=== PATIENT | male | born 1985 | race Caucasian/White ===

== ENCOUNTER 2019-05-20 14:29 | Emergency (ER) | payer MEDICAID ==
[~2019-05-20] VITALS: Ht 172.7 cm; Wt 75.0 kg
[~2019-05-20 14:29] MED LIST: CLON0.1T20 PO; PANT-47 PO; PENI500T2 PO; TEG100T PO
[2019-05-20 15:03] VITALS: BP 130/84
[2019-05-20] MEDS ORDERED: PAT0.1OS OP (15:23)
== END 2019-05-20 15:54 | disposition home or self-care (01) ==
LOC: ER 14:29
DX: H02.824 Cysts of left upper eyelid (principal); H10.13 Acute atopic conjunctivitis, bilateral; R05 Cough; J02.9 Acute pharyngitis, unspecified; R09.89 Other specified symptoms and signs involving the circulatory and respiratory systems; J45.909 Unspecified asthma, uncomplicated; F31.9 Bipolar disorder, unspecified; Z86.14 Personal history of Methicillin resistant Staphylococcus aureus infection; Z90.49 Acquired absence of other specified parts of digestive tract; Z98.890 Other specified postprocedural states
CPT/HCPCS: 99283

== ENCOUNTER 2020-02-26 11:44 | Emergency (ER) | payer MEDICAID ==
[~2020-02-26] VITALS: Ht 175.3 cm; Wt 77.0 kg
[~2020-02-26 11:44] MED LIST changes: +CLON0.1T2 PO; -CLON0.1T20 PO; +PAT0.1OS OP
[2020-02-26 11:55] VITALS: BP 109/76
[2020-02-26] MEDS ORDERED: ibuprofen tablet 400 MG TABLET PO ONE (12:20)
[2020-02-26] MEDS ORDERED: HYDR-4383 PO (12:22)
[2020-02-26] MEDS ORDERED: ONDA4TAB6 PO (12:22)
== END 2020-02-26 12:38 | disposition home or self-care (01) ==
LOC: ER 11:44
DX: S92.415A Nondisplaced fracture of proximal phalanx of left great toe, initial encounter for closed fracture (principal); J45.909 Unspecified asthma, uncomplicated; F31.9 Bipolar disorder, unspecified; Z86.14 Personal history of Methicillin resistant Staphylococcus aureus infection; Z90.49 Acquired absence of other specified parts of digestive tract; Z79.899 Other long term (current) drug therapy; W01.0XXA Fall on same level from slipping, tripping and stumbling without subsequent striking against object, initial encounter; Y93.89 Activity, other specified; Y92.89 Other specified places as the place of occurrence of the external cause; Y99.8 Other external cause status
CPT/HCPCS: 73660; 99284

== ENCOUNTER 2020-06-18 22:13 | Emergency (ER) | payer MEDICAID ==
[~2020-06-18 22:13] MED LIST changes: +HYDR-4383 PO; +ONDA4TAB6 PO
== END 2020-06-18 23:19 | disposition left against medical advice (07) ==
LOC: ER 22:13
DX: M25.519 Pain in unspecified shoulder (principal); Z53.21 Procedure and treatment not carried out due to patient leaving prior to being seen by health care provider

== ENCOUNTER 2020-12-06 14:06 | Emergency (ER) | payer MEDICAID ==
[~2020-12-06] VITALS: Ht 175.3 cm; Wt 76.4 kg
[2020-12-06 16:19] LABS: MEAN CORPUSCULAR HEMOGLOBIN 28.9 PG (27.0-31.0); MEAN CORPUSCULAR HGB CONC 33.2 g/dL (33.0-36.5); MEAN CORPUSCULAR VOLUME 87.1 FL (78-98)
[2020-12-06 16:21] LABS: BASOPHILS # (AUTO) 0.1 X10'3 (0-0.2); BASOPHILS % (AUTO) 0.9 % (0-1); EOSINOPHILS # (AUTO) 0.4 X10'3 (0-0.9); EOSINOPHILS % (AUTO) 3.5 % (0-6); HEMOGLOBIN 15.9 g/dl (14.0-17.9); LYMPHOCYTES # (AUTO) 2.6 X10'3 (1.1-4.8); LYMPHOCYTES % (AUTO) 23.7 % (21-51); MEAN PLATELET VOLUME 9.5 FL (7.4-10.4); MONOCYTES % (AUTO) 8.8 % (2-12); NEUTROPHILS # (AUTO) 6.9 X10'3 (1.8-7.7); NEUTROPHILS % (AUTO) 63.1 % (42-75); PLATELET COUNT 226 X10'3 (140-440); RED BLOOD COUNT 5.51 X10'6 (4.70-6.10); RED CELL DISTRIBUTION WIDTH 13.8 % (11.5-14.5); WHITE BLOOD COUNT 10.9 X10'3 (4.5-11.0)
[2020-12-06 16:30] LABS: ALANINE AMINOTRANSFERASE 26 U/L (12-78); ALBUMIN 3.8 G/DL (3.4-5.0); ALBUMIN/GLOBULIN RATIO 1.2 (1.1-1.5); ALKALINE PHOSPHATASE 78 IU/L (46-116); ANION GAP 9 (8-16); ASPARTATE AMINO TRANSFERASE 16 U/L (10-37); BILIRUBIN,TOTAL 0.3 MG/DL (0.1-1.0); BLOOD UREA NITROGEN 13 MG/DL (7-18); CALCIUM 8.2 MG/DL (8.5-10.1); CHLORIDE 106 MMOL/L (99-107); CREATININE 1.08 MG/DL (0.60-1.10); GLUCOSE 84 MG/DL (70-104); LIPASE 118 U/L (73-393); POTASSIUM 4.3 MMOL/L (3.5-5.1); SODIUM 142 MMOL/L (135-145); TOTAL CARBON DIOXIDE 27.2 MMOL/L (24-32); TOTAL PROTEIN 6.9 G/DL (6.4-8.2); eGFR 78 ML/MIN
[2020-12-06 16:32] LABS: CLARITY,URINE SLIGHTLY CLOUDY (Clear); COLOR,URINE YELLOW (Yellow); GLUCOSE, URINE NEGATIVE (Neg); KETONES,URINE TRACE mg/dl (Neg); LEUKOCYTE ESTERASE ,URINE NEGATIVE (Neg); NITRITES, URINE NEGATIVE (Neg); OCCULT BLOOD,URINE SMALL (Neg); PH,URINE 5.5 (4.8-8.0); PROTEIN,URINE NEGATIVE (Neg)
[2020-12-06 16:37] LABS: UA COLLECTION TYPE CLN CATCH MIDSTREAM
[2020-12-06 16:41] LABS: MUCUS STRANDS MANY /LPF (Neg); SQUAMOUS EPITHELIAL CELL,UR NONE SEEN /LPF (FEW)
[2020-12-06 16:44] LABS: BACTERIA,URINE FEW /HPF (Neg); WBC,URINE 0-4 /HPF (0-4)
[2020-12-06] MEDS ORDERED: ibuprofen tablet 400 MG TABLET PO ONE (19:00)
--- NOTE | 2020-12-06 19:11 | NUR ---
KALYANI KINNEY REPORTS OK FOR PT TO HAVE SOEMTHING TO EAT AND DRINK. US TECH AT BEDSIDE FOR BEDSIDE US.
[2020-12-06] MEDS ORDERED: HYDR-3965 PO (19:57)
[2020-12-06] MEDS ORDERED: FLO0.4C PO (19:58)
--- NOTE | 2020-12-06 20:03 | NUR ---
PT DC READY. KALYANI KINNEY TALKING WITH PT AT THIS TIME AND PROVIDING DC INSTRUCTIONS.
[2020-12-06] MEDS ORDERED: ALBU8.5H8 INH (20:09)
[2020-12-06 20:16] VITALS: BP 106/69
== END 2020-12-06 20:18 | disposition home or self-care (01) ==
LOC: ER 14:07
DX: N20.0 Calculus of kidney (principal); R10.84 Generalized abdominal pain; R11.0 Nausea; J45.909 Unspecified asthma, uncomplicated; F31.9 Bipolar disorder, unspecified; Z87.11 Personal history of peptic ulcer disease; Z86.14 Personal history of Methicillin resistant Staphylococcus aureus infection; Z90.89 Acquired absence of other organs; Z79.899 Other long term (current) drug therapy; Z79.2 Long term (current) use of antibiotics
CPT/HCPCS: 36415; 76775; 80053; 81001; 83690; 85025; 99284

== ENCOUNTER 2020-12-14 06:35 | Emergency (ER) | payer MEDICAID ==
[~2020-12-14] VITALS: Ht 172.7 cm; Wt 77.3 kg
[~2020-12-14 06:35] MED LIST changes: +ALBU8.5H8 INH; +FLO0.4C PO; +HYDR-3965 PO
--- NOTE | 2020-12-14 06:59 | NUR ---
PT REQUESTED THAT HIS MOTHER BE CALLED AND NOTIFIED THAT HE WAS IN THE ER. CÉSAR TRAYLOR WAS CALLED AT [phone], NO ANSWER, MESSAGE LEFT TO CALL.
[2020-12-14] MEDS ORDERED: ondansetron/PF 4mg/2ml inj IV ONE (07:00)
[2020-12-14] MEDS ORDERED: normal saline 1000ML IV soln IVB ONE (07:00)
[2020-12-14] MEDS ORDERED: ketorolac trometh. 30mg/ml inj. IV ONE (07:00)
[2020-12-14 07:10] LABS: BASOPHILS # (AUTO) 0.1 X10'3 (0-0.2); BASOPHILS % (AUTO) 0.8 % (0-1); EOSINOPHILS # (AUTO) 0.5 X10'3 (0-0.9); EOSINOPHILS % (AUTO) 4.4 % (0-6); HEMATOCRIT 49.1 % (42.0-52.0); HEMOGLOBIN 16.5 g/dl (14.0-17.9); LYMPHOCYTES # (AUTO) 3.5 X10'3 (1.1-4.8); LYMPHOCYTES % (AUTO) 32.4 % (21-51); MEAN CORPUSCULAR HEMOGLOBIN 29.7 PG (27.0-31.0); MEAN CORPUSCULAR HGB CONC 33.6 g/dL (33.0-36.5); MEAN CORPUSCULAR VOLUME 88.4 FL (78-98); MEAN PLATELET VOLUME 9.2 FL (7.4-10.4); MONOCYTES % (AUTO) 9.6 % (2-12); NEUTROPHILS # (AUTO) 5.7 X10'3 (1.8-7.7); NEUTROPHILS % (AUTO) 52.8 % (42-75); PLATELET COUNT 237 X10'3 (140-440); RED BLOOD COUNT 5.55 X10'6 (4.70-6.10); WHITE BLOOD COUNT 10.7 X10'3 (4.5-11.0)
[2020-12-14] MEDS: morphine 4 MG/ML inj SYRINge IV PRN ×2 (07:14→07:38)
[2020-12-14 07:25] LABS: ALANINE AMINOTRANSFERASE 24 U/L (12-78); ALBUMIN 3.8 G/DL (3.4-5.0); ALBUMIN/GLOBULIN RATIO 1.2 (1.1-1.5); ALKALINE PHOSPHATASE 74 IU/L (46-116); ANION GAP 14 (8-16); ASPARTATE AMINO TRANSFERASE 12 U/L (10-37); BILIRUBIN,TOTAL 0.5 MG/DL (0.1-1.0); BLOOD UREA NITROGEN 12 MG/DL (7-18); BUN/CREATININE RATIO 11.7 (5.4-32.0); CALCIUM 8.6 MG/DL (8.5-10.1); CHLORIDE 109 MMOL/L (99-107); CREATININE 1.03 MG/DL (0.60-1.10); GLUCOSE 119 MG/DL (70-104); LIPASE 106 U/L (73-393); POTASSIUM 3.6 MMOL/L (3.5-5.1); SODIUM 145 MMOL/L (135-145); TOTAL CARBON DIOXIDE 21.8 MMOL/L (24-32); TOTAL PROTEIN 6.9 G/DL (6.4-8.2); eGFR 82 ML/MIN
[2020-12-14] MEDS ORDERED: proCHLORperazine 10 MG/2 ml inj IV ONE (08:05)
--- NOTE | 2020-12-14 09:20 | NUR ---
CT COMPLETED, PT BACK IN BED, STATES PAIN IS 5/10
[2020-12-14] MEDS ORDERED: HYDROcodone/acetaminophen 10/325mg tab PO ONE ×2 (09:30→10:35)
[2020-12-14] MEDS ORDERED: HYDR-3972 PO (09:41)
--- NOTE | 2020-12-14 09:42 | NUR ---
PT SLEEPING, NO S/S OF DISTRESS
[2020-12-14 10:45] VITALS: BP 105/79
== END 2020-12-14 10:49 | disposition home or self-care (01) ==
LOC: ER 06:36
DX: N20.2 Calculus of kidney with calculus of ureter (principal); N28.89 Other specified disorders of kidney and ureter; J45.909 Unspecified asthma, uncomplicated; F31.9 Bipolar disorder, unspecified; Z86.14 Personal history of Methicillin resistant Staphylococcus aureus infection; Z90.49 Acquired absence of other specified parts of digestive tract; Z79.899 Other long term (current) drug therapy
CPT/HCPCS: 36415; 74176; 80053; 83690; 85025; 96361; 96374; 96375; 99284; J0780; J1885; J2270; J2405; J7030

== ENCOUNTER 2020-12-16 05:18 | Emergency (ER) | payer MEDICAID ==
[~2020-12-16] VITALS: Ht 175.3 cm; Wt 77.0 kg
[~2020-12-16 05:18] MED LIST changes: -HYDR-3965 PO; +HYDR-3972 PO
[2020-12-16] MEDS ORDERED: normal saline 1000ML IV soln IVB ONE (05:55)
[2020-12-16] MEDS ORDERED: ketorolac tromethamine 15mg/ml inj. IV ONE (05:55)
[2020-12-16] MEDS ORDERED: morphine 4 MG/ML inj SYRINge IV ONE (05:55)
[2020-12-16 07:37] LABS: BASOPHILS # (AUTO) 0.1 X10'3 (0-0.2); BASOPHILS % (AUTO) 0.9 % (0-1); EOSINOPHILS # (AUTO) 0.4 X10'3 (0-0.9); EOSINOPHILS % (AUTO) 3.9 % (0-6); HEMATOCRIT 44.9 % (42.0-52.0); LYMPHOCYTES # (AUTO) 1.9 X10'3 (1.1-4.8); LYMPHOCYTES % (AUTO) 20.9 % (21-51); MEAN CORPUSCULAR HGB CONC 33.4 g/dL (33.0-36.5); MEAN PLATELET VOLUME 9.4 FL (7.4-10.4); MONOCYTES # (AUTO) 0.9 X10'3 (0-0.9); MONOCYTES % (AUTO) 9.7 % (2-12); NEUTROPHILS % (AUTO) 64.6 % (42-75); PLATELET COUNT 196 X10'3 (140-440); RED BLOOD COUNT 5.16 X10'6 (4.70-6.10); RED CELL DISTRIBUTION WIDTH 13.9 % (11.5-14.5); WHITE BLOOD COUNT 9.3 X10'3 (4.5-11.0)
[2020-12-16 07:48] VITALS: BP 120/78
[2020-12-16 07:52] LABS: ALANINE AMINOTRANSFERASE 22 U/L (12-78); ALBUMIN 3.5 G/DL (3.4-5.0); ALBUMIN/GLOBULIN RATIO 1.2 (1.1-1.5); ALKALINE PHOSPHATASE 67 IU/L (46-116); ANION GAP 8 (8-16); ASPARTATE AMINO TRANSFERASE 14 U/L (10-37); BILIRUBIN,TOTAL 0.3 MG/DL (0.1-1.0); BLOOD UREA NITROGEN 10 MG/DL (7-18); BUN/CREATININE RATIO 10.2 (5.4-32.0); CALCIUM 8.4 MG/DL (8.5-10.1); CHLORIDE 108 MMOL/L (99-107); CREATININE 0.98 MG/DL (0.60-1.10); GLUCOSE 91 MG/DL (70-104); POTASSIUM 3.8 MMOL/L (3.5-5.1); SODIUM 143 MMOL/L (135-145); TOTAL CARBON DIOXIDE 26.6 MMOL/L (24-32); TOTAL PROTEIN 6.4 G/DL (6.4-8.2); eGFR 87 ML/MIN
[2020-12-16 08:34] LABS: CLARITY,URINE CLEAR (Clear); COLOR,URINE YELLOW (Yellow); GLUCOSE, URINE NEGATIVE (Neg); KETONES,URINE NEGATIVE (Neg); LEUKOCYTE ESTERASE ,URINE NEGATIVE (Neg); NITRITES, URINE NEGATIVE (Neg); OCCULT BLOOD,URINE SMALL (Neg); PH,URINE 5.5 (4.8-8.0); PROTEIN,URINE NEGATIVE (Neg); UROBILINOGEN,URINE 0.2 E.U/dL (0.2-1.0)
[2020-12-16 08:35] LABS: UA COLLECTION TYPE NON-SPECIFIED
[2020-12-16 08:43] LABS: HYALINE CASTS 0-3 /LPF (NEGATIVE); MUCUS STRANDS FEW /LPF (Neg); SQUAMOUS EPITHELIAL CELL,UR FEW /LPF (FEW)
[2020-12-16 08:44] LABS: BACTERIA,URINE 1+ /HPF (Neg); WBC,URINE 0-4 /HPF (0-4)
== END 2020-12-16 09:55 | disposition home or self-care (01) ==
LOC: ER 05:19
DX: N20.1 Calculus of ureter (principal); N20.0 Calculus of kidney; J45.909 Unspecified asthma, uncomplicated; F31.9 Bipolar disorder, unspecified; Z86.14 Personal history of Methicillin resistant Staphylococcus aureus infection; Z90.49 Acquired absence of other specified parts of digestive tract; Z88.8 Allergy status to other drugs, medicaments and biological substances; Z79.899 Other long term (current) drug therapy
CPT/HCPCS: 36415; 80053; 81001; 85025; 96361; 96374; 99283; J1885; J7030

== ENCOUNTER 2021-02-06 12:34 | Emergency (ER) | payer MEDICAID ==
[~2021-02-06] VITALS: Ht 175.3 cm; Wt 75.4 kg
[~2021-02-06 12:34] MED LIST changes: -FLO0.4C PO; -HYDR-3972 PO
[2021-02-06 12:43] VITALS: BP 119/83
[2021-02-06 13:14] LABS: CLARITY,URINE CLOUDY (Clear); COLOR,URINE YELLOW (Yellow); GLUCOSE, URINE NEGATIVE (Neg); KETONES,URINE TRACE mg/dl (Neg); LEUKOCYTE ESTERASE ,URINE NEGATIVE (Neg); NITRITES, URINE NEGATIVE (Neg); OCCULT BLOOD,URINE LARGE (Neg); PH,URINE 5.5 (4.8-8.0); PROTEIN,URINE 30 mg/dl (Neg)
[2021-02-06 13:15] LABS: UA COLLECTION TYPE VOIDED
[2021-02-06 13:22] LABS: MUCUS STRANDS FEW /LPF (Neg); RBC,URINE TNTC /HPF (0-2); SQUAMOUS EPITHELIAL CELL,UR FEW /LPF (FEW)
[2021-02-06 13:27] LABS: BACTERIA,URINE 1+ /HPF (Neg)
[2021-02-06 13:42] LABS: BASOPHILS # (AUTO) 0.1 X10'3 (0-0.2); BASOPHILS % (AUTO) 1.3 % (0-1); EOSINOPHILS # (AUTO) 0.3 X10'3 (0-0.9); EOSINOPHILS % (AUTO) 3.7 % (0-6); HEMATOCRIT 48.8 % (42.0-52.0); HEMOGLOBIN 16.7 g/dl (14.0-17.9); LYMPHOCYTES # (AUTO) 2.1 X10'3 (1.1-4.8); LYMPHOCYTES % (AUTO) 25.1 % (21-51); MEAN CORPUSCULAR HEMOGLOBIN 29.5 PG (27.0-31.0); MEAN CORPUSCULAR HGB CONC 34.1 g/dL (33.0-36.5); MEAN CORPUSCULAR VOLUME 86.4 FL (78-98); MEAN PLATELET VOLUME 9.2 FL (7.4-10.4); MONOCYTES # (AUTO) 0.6 X10'3 (0-0.9); MONOCYTES % (AUTO) 7.5 % (2-12); NEUTROPHILS # (AUTO) 5.3 X10'3 (1.8-7.7); NEUTROPHILS % (AUTO) 62.4 % (42-75); PLATELET COUNT 228 X10'3 (140-440); RED BLOOD COUNT 5.65 X10'6 (4.70-6.10); RED CELL DISTRIBUTION WIDTH 13.7 % (11.5-14.5); WHITE BLOOD COUNT 8.4 X10'3 (4.5-11.0)
[2021-02-06 13:45] LABS: ALANINE AMINOTRANSFERASE 24 U/L (12-78); ALBUMIN 3.9 G/DL (3.4-5.0); ALBUMIN/GLOBULIN RATIO 1.1 (1.1-1.5); ALKALINE PHOSPHATASE 78 IU/L (46-116); ANION GAP 7 (8-16); ASPARTATE AMINO TRANSFERASE 15 U/L (10-37); BILIRUBIN,TOTAL 0.4 MG/DL (0.1-1.0); BLOOD UREA NITROGEN 10 MG/DL (7-18); BUN/CREATININE RATIO 9.3 (5.4-32.0); CALCIUM 8.7 MG/DL (8.5-10.1); CHLORIDE 106 MMOL/L (99-107); CREATININE 1.08 MG/DL (0.60-1.10); GLUCOSE 101 MG/DL (70-104); POTASSIUM 3.8 MMOL/L (3.5-5.1); SODIUM 141 MMOL/L (135-145); TOTAL CARBON DIOXIDE 28.5 MMOL/L (24-32); TOTAL PROTEIN 7.3 G/DL (6.4-8.2); eGFR 78 ML/MIN
== END 2021-02-06 14:20 | disposition home or self-care (01) ==
LOC: ER 12:35
DX: R31.9 Hematuria, unspecified (principal); J45.909 Unspecified asthma, uncomplicated; F31.9 Bipolar disorder, unspecified; Z87.11 Personal history of peptic ulcer disease; Z87.442 Personal history of urinary calculi; Z86.14 Personal history of Methicillin resistant Staphylococcus aureus infection; Z90.89 Acquired absence of other organs; Z79.2 Long term (current) use of antibiotics; Z79.899 Other long term (current) drug therapy
CPT/HCPCS: 36415; 80053; 81001; 85025; 87088; 99283

== ENCOUNTER 2021-02-19 09:47 | Emergency (ER) | payer MEDICAID ==
[~2021-02-19] VITALS: Ht 175.3 cm; Wt 74.0 kg
[2021-02-19 09:55] VITALS: BP 127/79
[2021-02-19 10:42] LABS: CLARITY,URINE SLIGHTLY CLOUDY (Clear); COLOR,URINE AMBER (Yellow); GLUCOSE, URINE 100 mg/dl (Neg); KETONES,URINE TRACE mg/dl (Neg); LEUKOCYTE ESTERASE ,URINE NEGATIVE (Neg); OCCULT BLOOD,URINE LARGE (Neg); PROTEIN,URINE 100 mg/dl (Neg)
[2021-02-19 10:45] LABS: UA COLLECTION TYPE CLN CATCH MIDSTREAM
[2021-02-19 10:49] LABS: BACTERIA,URINE FEW /HPF (Neg); NITRITES, URINE NEGATIVE (Neg); RBC,URINE 50-100 /HPF (0-2); WBC,URINE 0-4 /HPF (0-4)
[2021-02-19 10:50] LABS: MUCUS STRANDS FEW /LPF (Neg); SQUAMOUS EPITHELIAL CELL,UR FEW /LPF (FEW)
== END 2021-02-19 13:03 | disposition left against medical advice (07) ==
LOC: ER 09:48
DX: C64.2 Malignant neoplasm of left kidney, except renal pelvis (principal); R31.9 Hematuria, unspecified; J45.909 Unspecified asthma, uncomplicated; F31.9 Bipolar disorder, unspecified; Z87.442 Personal history of urinary calculi; Z90.49 Acquired absence of other specified parts of digestive tract; Z86.14 Personal history of Methicillin resistant Staphylococcus aureus infection; Z79.899 Other long term (current) drug therapy
CPT/HCPCS: 81001; 99283

== ENCOUNTER 2022-09-16 17:02 | Emergency (ER) | payer MEDICAID ==
[~2022-09-16] VITALS: Ht 175.3 cm; Wt 75.0 kg
[~2022-09-16 17:02] MED LIST changes: +ALBU8.5H17 INH; -ALBU8.5H8 INH
[2022-09-16 17:22] VITALS: BP 135/95
[2022-09-16 18:14] LABS: BASOPHILS # (AUTO) 0.1 X10'3 (0-0.2); BASOPHILS % (AUTO) 0.8 % (0-1); EOSINOPHILS # (AUTO) 0.3 X10'3 (0-0.9); EOSINOPHILS % (AUTO) 2.3 % (0-6); HEMATOCRIT 48.3 % (42.0-52.0); HEMOGLOBIN 16.5 g/dl (14.0-17.9); LYMPHOCYTES # (AUTO) 2.2 X10'3 (1.1-4.8); LYMPHOCYTES % (AUTO) 16.1 % (21-51); MEAN CORPUSCULAR HEMOGLOBIN 29.1 PG (27.0-31.0); MEAN CORPUSCULAR HGB CONC 34.2 g/dL (33.0-36.5); MEAN PLATELET VOLUME 8.4 FL (7.4-10.4); MONOCYTES # (AUTO) 0.9 X10'3 (0-0.9); MONOCYTES % (AUTO) 6.8 % (2-12); NEUTROPHILS # (AUTO) 9.9 X10'3 (1.8-7.7); PLATELET COUNT 248 X10'3 (140-440); RED BLOOD COUNT 5.68 X10'6 (4.70-6.10); RED CELL DISTRIBUTION WIDTH 13.9 % (11.5-14.5); WHITE BLOOD COUNT 13.4 X10'3 (4.5-11.0)
[2022-09-16 18:23] LABS: ALANINE AMINOTRANSFERASE 31 U/L (12-78); ALBUMIN 4.2 G/DL (3.4-5.0); ALBUMIN/GLOBULIN RATIO 1.2 (1.1-1.5); ALKALINE PHOSPHATASE 92 IU/L (46-116); ANION GAP 8 (8-16); ASPARTATE AMINO TRANSFERASE 18 U/L (10-37); BILIRUBIN,TOTAL 0.4 MG/DL (0.1-1.0); BLOOD UREA NITROGEN 11 MG/DL (7-18); BUN/CREATININE RATIO 10.7 (5.4-32.0); CALCIUM 9.2 MG/DL (8.5-10.1); CHLORIDE 103 MMOL/L (99-107); CREATININE 1.03 MG/DL (0.60-1.10); GLUCOSE 91 MG/DL (70-104); LIPASE 102 U/L (73-393); POTASSIUM 4.5 MMOL/L (3.5-5.1); SODIUM 138 MMOL/L (135-145); TOTAL CARBON DIOXIDE 27.5 MMOL/L (24-32); TOTAL PROTEIN 7.6 G/DL (6.4-8.2); eGFR 81 ML/MIN
== END 2022-09-16 21:50 | disposition left against medical advice (07) ==
LOC: ER 17:03
DX: R10.9 Unspecified abdominal pain (principal); Z53.21 Procedure and treatment not carried out due to patient leaving prior to being seen by health care provider
CPT/HCPCS: 36415; 80053; 83690; 85025

== ENCOUNTER 2022-12-01 00:37 | Emergency (ER) | payer MEDICAID ==
[~2022-12-01] VITALS: Ht 175.3 cm; Wt 77.3 kg
[2022-12-01 00:41] VITALS: BP 124/83
[2022-12-01] MEDS ORDERED: ibuprofen tablet 400 MG TABLET PO ONE (01:30)
[2022-12-01] MEDS ORDERED: acetaminophen 325mg tablet PO ONE (01:30)
== END 2022-12-01 02:01 | disposition home or self-care (01) ==
LOC: ER 00:38
DX: J02.9 Acute pharyngitis, unspecified (principal); J45.909 Unspecified asthma, uncomplicated; F31.9 Bipolar disorder, unspecified; Z88.8 Allergy status to other drugs, medicaments and biological substances
CPT/HCPCS: 87081; 87880; 99283

== ENCOUNTER 2022-12-02 23:56 | Emergency (ER) | payer MEDICAID ==
[~2022-12-02] VITALS: Ht 175.3 cm; Wt 77.3 kg
[2022-12-02 23:59] VITALS: BP 116/85
== END 2022-12-03 00:51 | disposition home or self-care (01) ==
LOC: ER 23:57
DX: J02.9 Acute pharyngitis, unspecified (principal); F31.9 Bipolar disorder, unspecified; J45.909 Unspecified asthma, uncomplicated; Z87.442 Personal history of urinary calculi; Z90.49 Acquired absence of other specified parts of digestive tract; Z88.8 Allergy status to other drugs, medicaments and biological substances; Z79.899 Other long term (current) drug therapy; Z79.1 Long term (current) use of non-steroidal anti-inflammatories (NSAID); Z79.2 Long term (current) use of antibiotics
CPT/HCPCS: 87081; 99283

== ENCOUNTER 2023-01-31 14:55 | Emergency (ER) | payer MEDICAID ==
[~2023-01-31] VITALS: Ht 175.3 cm; Wt 75.0 kg
[2023-01-31 15:40] VITALS: BP_SYST 102
== END 2023-01-31 17:40 | disposition home or self-care (01) ==
LOC: ER 14:56
DX: K40.90 Unilateral inguinal hernia, without obstruction or gangrene, not specified as recurrent (principal); J45.909 Unspecified asthma, uncomplicated; F31.9 Bipolar disorder, unspecified; Z88.8 Allergy status to other drugs, medicaments and biological substances; Z98.890 Other specified postprocedural states
CPT/HCPCS: 99281

== ENCOUNTER 2024-05-01 12:00 | Emergency (ER) | payer MEDICAID ==
[~2024-05-01] VITALS: Ht 172.7 cm; Wt 84.1 kg
[2024-05-01 12:01] VITALS: TEMP 97.8
[2024-05-01 12:50] LABS: BASOPHILS % (AUTO) 0.5 % (0-1); EOSINOPHILS # (AUTO) 0.2 X10'3 (0-0.9); EOSINOPHILS % (AUTO) 2.3 % (0-6); HEMATOCRIT 46.1 % (42.0-52.0); HEMOGLOBIN 15.6 g/dl (14.0-17.9); LYMPHOCYTES # (AUTO) 0.7 X10'3 (1.1-4.8); LYMPHOCYTES % (AUTO) 7.8 % (21-51); MEAN CORPUSCULAR HEMOGLOBIN 29.3 PG (27.0-31.0); MEAN CORPUSCULAR HGB CONC 33.8 g/dL (33.0-36.5); MEAN CORPUSCULAR VOLUME 86.8 FL (78-98); MEAN PLATELET VOLUME 9.2 FL (7.4-10.4); MONOCYTES # (AUTO) 0.7 X10'3 (0-0.9); MONOCYTES % (AUTO) 8.5 % (2-12); NEUTROPHILS # (AUTO) 6.8 X10'3 (1.8-7.7); NEUTROPHILS % (AUTO) 80.9 % (42-75); PLATELET COUNT 205 X10'3 (140-440); RED BLOOD COUNT 5.31 X10'6 (4.70-6.10); RED CELL DISTRIBUTION WIDTH 13.8 % (11.5-14.5); WHITE BLOOD COUNT 8.4 X10'3 (4.5-11.0)
[2024-05-01 13:09] LABS: ALBUMIN 3.8 G/DL (3.4-5.0); ANION GAP 12 (8-16); BLOOD UREA NITROGEN 11 MG/DL (7-18); BUN/CREATININE RATIO 9.2 (10.0-20.0); CALCIUM 7.8 MG/DL (8.5-10.1); CHLORIDE 105 MMOL/L (99-107); GLUCOSE 105 MG/DL (70-104); POTASSIUM 3.6 MMOL/L (3.5-5.1); PRO BRAIN NATRIURETIC PEPTIDE < 30 PG/ML (0-125); SODIUM 143 MMOL/L (135-145); TOTAL CARBON DIOXIDE 26.4 MMOL/L (24-32); eCRCL 81 ML/MIN; eGFR 68 ML/MIN
[2024-05-01 13:36] VITALS: BP 117/87; PULSE 108; RESP 18; O2SAT 98
== END 2024-05-01 13:40 | disposition home or self-care (01) ==
LOC: ER 12:01
DX: R00.2 Palpitations (principal); F41.9 Anxiety disorder, unspecified; I49.9 Cardiac arrhythmia, unspecified; J45.909 Unspecified asthma, uncomplicated; F32.A Depression, unspecified; Z88.8 Allergy status to other drugs, medicaments and biological substances; Z79.899 Other long term (current) drug therapy; Z79.2 Long term (current) use of antibiotics; Z98.890 Other specified postprocedural states
CPT/HCPCS: 36415; 71045; 80048; 83880; 84484; 85025; 93005; 99285

== ENCOUNTER 2024-05-05 13:19 | Emergency (ER) | payer MEDICAID ==
[~2024-05-05] VITALS: Ht 172.7 cm; Wt 83.6 kg
[2024-05-05] MEDS: dexamethasone sod phosphate 10mg/ml inj IV STA (13:54)
[2024-05-05 14:16] LABS: BASOPHILS # (AUTO) 0.1 X10'3 (0-0.2); BASOPHILS % (AUTO) 0.8 % (0-1); EOSINOPHILS # (AUTO) 0.4 X10'3 (0-0.9); EOSINOPHILS % (AUTO) 4.4 % (0-6); HEMATOCRIT 46.1 % (42.0-52.0); HEMOGLOBIN 15.6 g/dl (14.0-17.9); LYMPHOCYTES # (AUTO) 1.8 X10'3 (1.1-4.8); LYMPHOCYTES % (AUTO) 18.1 % (21-51); MEAN CORPUSCULAR HEMOGLOBIN 28.5 PG (27.0-31.0); MEAN CORPUSCULAR HGB CONC 33.8 g/dL (33.0-36.5); MEAN CORPUSCULAR VOLUME 84.4 FL (78-98); MONOCYTES # (AUTO) 0.9 X10'3 (0-0.9); MONOCYTES % (AUTO) 8.6 % (2-12); NEUTROPHILS # (AUTO) 6.8 X10'3 (1.8-7.7); NEUTROPHILS % (AUTO) 68.1 % (42-75); PLATELET COUNT 210 X10'3 (140-440); RED BLOOD COUNT 5.46 X10'6 (4.70-6.10); RED CELL DISTRIBUTION WIDTH 13.5 % (11.5-14.5)
[2024-05-05 14:25] LABS: D-DIMER 0.23 MG/L FEU (0-0.50)
[2024-05-05 14:45] LABS: ALANINE AMINOTRANSFERASE 28 U/L (12-78); ALBUMIN 3.6 G/DL (3.4-5.0); ALKALINE PHOSPHATASE 66 IU/L (46-116); ANION GAP 10 (8-16); ASPARTATE AMINO TRANSFERASE 17 U/L (10-37); BILIRUBIN,TOTAL 0.4 MG/DL (0.1-1.0); BLOOD UREA NITROGEN 10 MG/DL (7-18); CALCIUM 8.5 MG/DL (8.5-10.1); CHLORIDE 107 MMOL/L (99-107); GLUCOSE 89 MG/DL (70-104); SODIUM 143 MMOL/L (135-145); TOTAL CARBON DIOXIDE 25.8 MMOL/L (24-32); TOTAL PROTEIN 7.1 G/DL (6.4-8.2); eCRCL 97 ML/MIN; eGFR 84 ML/MIN
[2024-05-05] MEDS ORDERED: DEXA4TAB75 PO (14:49)
[2024-05-05] MEDS ORDERED: ALBU18HF2 INH (14:49)
[2024-05-05 15:27] VITALS: BP 102/79; PULSE 81; RESP 16; TEMP 98.9; O2SAT 97
== END 2024-05-05 15:36 | disposition home or self-care (01) ==
LOC: ER 13:20
DX: U07.1 COVID-19 (principal); R06.2 Wheezing; F32.A Depression, unspecified; Z88.8 Allergy status to other drugs, medicaments and biological substances; Z79.899 Other long term (current) drug therapy; Z79.2 Long term (current) use of antibiotics; Z98.890 Other specified postprocedural states
CPT/HCPCS: 36415; 71045; 80053; 84484; 85025; 85379; 93005; 96374; 99285; J1100

== ENCOUNTER 2024-09-09 09:18 | Emergency (ER) | payer MEDICAID ==
[~2024-09-09] VITALS: Ht 172.7 cm; Wt 85.7 kg
[~2024-09-09 09:18] MED LIST changes: +ALBU18HF2 INH; +DEXA4TAB75 PO
[2024-09-09 09:35] VITALS: BP 107/70; PULSE 78; RESP 18; TEMP 98.2; O2SAT 98
[2024-09-09 11:56] LABS: BASOPHILS # (AUTO) 0.1 X10'3 (0-0.2); BASOPHILS % (AUTO) 0.7 % (0-1); EOSINOPHILS # (AUTO) 0.5 X10'3 (0-0.9); EOSINOPHILS % (AUTO) 5.8 % (0-6); HEMATOCRIT 45.7 % (42.0-52.0); HEMOGLOBIN 15.3 g/dl (14.0-17.9); LYMPHOCYTES # (AUTO) 2.3 X10'3 (1.1-4.8); LYMPHOCYTES % (AUTO) 25.2 % (21-51); MEAN CORPUSCULAR HEMOGLOBIN 28.7 PG (27.0-31.0); MEAN CORPUSCULAR HGB CONC 33.4 g/dL (33.0-36.5); MEAN CORPUSCULAR VOLUME 85.8 FL (78-98); MEAN PLATELET VOLUME 9.3 FL (7.4-10.4); MONOCYTES # (AUTO) 0.8 X10'3 (0-0.9); NEUTROPHILS # (AUTO) 5.3 X10'3 (1.8-7.7); NEUTROPHILS % (AUTO) 59.3 % (42-75); PLATELET COUNT 262 X10'3 (140-440); RED BLOOD COUNT 5.33 X10'6 (4.70-6.10); RED CELL DISTRIBUTION WIDTH 13.6 % (11.5-14.5); WHITE BLOOD COUNT 8.9 X10'3 (4.5-11.0)
[2024-09-09 12:16] LABS: ALANINE AMINOTRANSFERASE 24 U/L (12-78); ALBUMIN 3.8 G/DL (3.4-5.0); ALBUMIN/GLOBULIN RATIO 1.2 (1.1-1.5); ALKALINE PHOSPHATASE 79 IU/L (46-116); ANION GAP 8 (8-16); ASPARTATE AMINO TRANSFERASE 11 U/L (10-37); BILIRUBIN,TOTAL 0.4 MG/DL (0.1-1.0); BLOOD UREA NITROGEN 12 MG/DL (7-18); BUN/CREATININE RATIO 10.9 (10.0-20.0); CALCIUM 8.7 MG/DL (8.5-10.1); CHLORIDE 106 MMOL/L (99-107); GLUCOSE 88 MG/DL (70-104); SODIUM 142 MMOL/L (135-145); TOTAL CARBON DIOXIDE 27.7 MMOL/L (24-32); TOTAL PROTEIN 7.1 G/DL (6.4-8.2); eCRCL 87 ML/MIN; eGFR 75 ML/MIN
== END 2024-09-09 12:53 | disposition home or self-care (01) ==
LOC: ER 09:19
DX: S16.1XXA Strain of muscle, fascia and tendon at neck level, initial encounter (principal); J45.909 Unspecified asthma, uncomplicated; F31.9 Bipolar disorder, unspecified; Z87.442 Personal history of urinary calculi; Z88.8 Allergy status to other drugs, medicaments and biological substances; X58.XXXA Exposure to other specified factors, initial encounter; Y93.89 Activity, other specified; Y92.89 Other specified places as the place of occurrence of the external cause; Y99.8 Other external cause status
CPT/HCPCS: 36415; 70360; 76536; 76882; 80053; 85025; 99284

== ENCOUNTER 2024-12-03 20:52 | Emergency (ER) | payer MEDICAID ==
[~2024-12-03] VITALS: Ht 172.7 cm; Wt 81.8 kg
[2024-12-03 20:59] VITALS: TEMP 98
[2024-12-03 21:10] VITALS: BP 110/55; PULSE 91; RESP 18; O2SAT 99
== END 2024-12-03 23:33 | disposition home or self-care (01) ==
LOC: ER 20:53
DX: H92.02 Otalgia, left ear (principal); J45.909 Unspecified asthma, uncomplicated; F31.9 Bipolar disorder, unspecified; Z90.49 Acquired absence of other specified parts of digestive tract
CPT/HCPCS: 99281

== ENCOUNTER 2025-03-01 15:07 | Emergency (ER) | payer MEDICAID ==
[~2025-03-01] VITALS: Ht 172.7 cm; Wt 83.6 kg
[2025-03-01 15:09] VITALS: BP 131/71; PULSE 63; RESP 18; TEMP 97.8; O2SAT 98
--- NOTE | 2025-03-01 16:06 | Physician Documentation ---
HPI ~ General Chief Complaint: Tooth Problem Stated Complaint: POSS SEPSIS Time Seen by MD: 15:37 OK to notify your PCP?: Yes Primary Medical Doctor: Caleb Source: patient Mode of Arrival: POV Exam Limitations: no limitations History of Present Illness HPI Comment 39 year old male with chief complaint left lower dental pain and concerned that he may have sepsis. he states he took tramadol today for dental pain and when he woke up from his nap he states I felt really off and I kind of felt nauseated. he has taken tramadol in the past but has been a few months when his tooth acted up previously. He states when he took it before he did not have this experience which is why he was thinking that it could be due to an infection. He took an [id number] medication for nausea but this did not help. He states he would like to have the tramadol switch to something else or get a prescription for Zofran to take with the tramadol. He also states the tramadol is an old prescription and if he continues to tramadol he will need a new prescription. He does have an appointment to see an oral surgeon to have the tooth fix. He went to a dentist in [place] and states it took a while to get into this dentist but then states this dentist would not treat his tooth and he was referred to an oral surgeon he is waiting to see now. Patient denies fever, chills, headache, painful or difficulty swallowing, neck pain or stiffness. No chest pain or SOB. Medication Reconciliation Allergies: Uncoded Allergies: TABASCO (Allergy, Severe, THROAT SWELLING, 07/30/15) Scheduled Carbamazepine* (Tegretol*), 200 MG PO QID, (Reported) Clonidine HCl (Clonidine HCl), 1 TAB PO QID, (Reported) Dexamethasone (Dexamethasone), 1 TAB PO UD Hydrocodone/Acetaminophen ([place] 5-325 Tablet), 1 TAB PO TID PRN Olopatadine Hcl (PATANOL ophth drops), 1 DRP OP ONCE Ondansetron Hcl (Zofran), 1 TAB PO Q6H Pantoprazole Sodium (PROTONIX tablet), 40 MG PO QAM Penicillin V Potassium* (Penicillin VK*), 500 MG PO Q6H Scheduled PRN Albuterol Sulfate (Proair Hfa), 2 PUFFS INH Q4HPRN PRN for wheezing Albuterol Sulfate (Ventolin Hfa), 2 PUFFS INH Q4HPRN PRN for wheezing Past Medical History Past Medical History: Asthma, Peptic Ulcer Disease, Kidney Stones, MRSA Abscess, *CANCER*, Bipolar, Depression Past Surgical History: appendectomy Alcohol Use: None Drug Use: none Lives with: Mother Lives In: Home Occupation: disabled Review of Systems All Other Systems at this time: Reviewed and Negative Physical Exam Vital Signs: Temperature: 97.8, Source: Oral, Heart Rate: 63, Respiratory Rate: 18, BP: 131/71, Pulse Oximetry: 98, Weight: 83.640 Physical Exam GENERAL: Alert, no acute distress. HEENT: NCAT, EOMI, PERRL, NO FACIAL SWELLING, LEFT LOWER MOLAR ABOUT 50% OF THE TOOTH IS MISSING, GINGIVA ON THE BUCCAL SIDE IS MILDLY ERYTHEMATOUS AND TTP, NO EDEMA, NO FLUCTUANCE. NORMAL PHARYNGEAL WALL. moist oral mucosa. NECK: Supple, trachea midline. NO CERVICAL LAD. CARDIAC: Regular rate and rhythm, no murmurs, rubs, or gallops. PV: Equal distal pulses. No lower extremity edema, cap refill less than 2 seconds. RESPIRATORY: Equal breath sounds, clear to auscultation bilaterally, no respiratory distress. GASTROINTESTINAL: Non distended, soft, nontender, No guarding or rebound. MUSCULOSKELETAL: Normal range of motion, nontender, no swelling. Normal gait. NEUROLOGICAL: Awake, alert, and oriented x 3. SKIN: Warm/dry, no pallor, no rash. PSYCH: Alert and appropriate. Affect congruent with mood. Speech is clear. Good eye contact. Progress Results/Orders Results/Orders Vital Signs 03/01/25 15:09 Temp 97.8 Pulse 63 Resp 18 B/P (MAP) 131/71 Pulse Ox 98 Medical Decision Making Differential Dx:Considerations: Include: Alveolar fracture, Alveolar osteitis, ANUG, Facial Cellulitis, Periapical abscess, Peridontal abscess, Post-extraction bleeding, Pulpitis, Tooth avulsion, Tooth eruption, Tooth Fracture, Trigeminal neuralgia, Tooth subluxation Departure Time of Disposition: 16:13 Disposition: 01 HOME / SELF CARE / HOMELESS Impression: Primary Impression: Pain, dental Condition: Stable Discharge Instructions: Dental Pain Additional Instructions: NO EVIDENCE FOR SEPSIS ANTIBIOTIC TO PHARMACY REFILLED TRAMADOL AND SENT RX FOR ZOFRAN WITH IT WE AGREED THE TRAMADOL WAS BETTER FIT DUE TO INCREASED RISK FOR ADDICTION ISSUES WITH [facility] Referrals: NO PRIMARY CARE PROVIDER (PCP) Prescriptions Amox Tr/Potassium Clavulanate 875/125 MG (Augmentin 875/125 MG) 875 Mg-125 Mg Tablet 1 TAB PO Q12H for 10 Days, #20 TAB Prov: TITUS CARBONE 03/01/25 Ondansetron HCl (Ondansetron HCl) 4 Mg Tablet 1 TAB PO TID PRN for nausea/vomiting for 3 Days, #12 TAB 0 Refills Prov: TITUS CARBONE 03/01/25 Tramadol HCl (Tramadol HCl) 50 Mg Tablet 1 TAB PO TID PRN PRN for pain for 4 Days, #12 TAB DX: DENTAL ABSCESS K08.8 Prov: TITUS CARBONE 03/01/25 Education Educated: Patient Educated regarding: diagnosis, treatment, need for follow up Signature Scribe Signature: x Attestation: TITUS Garsia Mar 01, 2025 16:06
[2025-03-01] MEDS ORDERED: AMOX-580 PO (16:11)
[2025-03-01] MEDS ORDERED: TRAM50TA2 PO (16:11)
[2025-03-01] MEDS ORDERED: ONDA-103 PO (16:11)
== END 2025-03-01 16:25 | disposition home or self-care (01) ==
LOC: ER 15:08
DX: K04.7 Periapical abscess without sinus (principal); J45.909 Unspecified asthma, uncomplicated; F32.A Depression, unspecified; Z79.899 Other long term (current) drug therapy; Z87.442 Personal history of urinary calculi; Z90.49 Acquired absence of other specified parts of digestive tract
CPT/HCPCS: 99283

== ENCOUNTER 2025-04-17 08:55 | Outpatient (CLI) | payer MEDICAID ==
[~2025-04-17 08:55] MED LIST changes: +ONDA-103 PO
--- NOTE | 2025-04-17 10:04 | RADIOLOGY REPORT ---
CT CT CHEST INDICATION: SOLITARY PULMONARY NODULE EXAM DATE: 04/17/2025 09:02 AM COMPARISON: None RADIATION DOSE: CTDIvol: 15 mGy, DLP: 1237 mGy*cm PROCEDURE: Helical CT images were obtained of the chest without intravenous contrast. Sagittal and c oronal reconstructions are provided. ADDITIONAL IMAGES / REFORMATS: None All CT scans at this medical facility are performed using dose modulation techniques as appropriate t o a performed exam including the following: Automated exposure control was utilized; adjustment of th e MA and/or KV according to patient size; and use of iterative reconstruction technique. FINDINGS: Bones: Scattered degenerative changes are noted. Visualized Abdomen: 1.3 cm left hepatic cyst. Nonobstructive left kidney stone. Chest Wall: Normal. Soft tissues: Normal. Mediastinum: Normal. Heart: Coronary artery calcifications are noted. Vessels: Normal. Lymph Nodes: Normal. Pleura: Normal. Airways: Normal. Lun mm RUL subpleural nodule is most likely a lymph node. Other: None IMPRESSION: 4 mm RUL subpleural nodule is most likely a lymph node. Consider follow up CT in year for stability.
== END 2025-04-17 23:59 | disposition home or self-care (01) ==
LOC: RAD 08:55
PROVIDERS: ATTEND Family Medicine
DX: R91.1 Solitary pulmonary nodule (principal); Z85.528 Personal history of other malignant neoplasm of kidney; N20.0 Calculus of kidney; K76.89 Other specified diseases of liver; I25.10 Atherosclerotic heart disease of native coronary artery without angina pectoris; M47.814 Spondylosis without myelopathy or radiculopathy, thoracic region
CPT/HCPCS: 71250; 74150

== ENCOUNTER 2025-08-06 22:08 | Emergency (ER) | payer MEDICAID ==
[~2025-08-06] VITALS: Ht 172.7 cm; Wt 84.1 kg
[~2025-08-06 22:08] MED LIST changes: +DEXA4TAB PO; -DEXA4TAB75 PO
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
--- NOTE | 2025-08-06 23:15 | RADIOLOGY REPORT ---
CLINICAL INDICATION: Clavicle/shoulder surgery 2 weeks ago, increased pain and swelling TECHNIQUE: 2 views DI SHOULDER, COMPLETE (MIN 2 VWS) COMPARISON: None FINDINGS: See below. IMPRESSION: Limited exam with nonstandard shoulder [id number] and no orthogonal images. No obvious fracture. Distal clavicle plate-screw fixation with AC joint stabilizer without evidence of hardware complication. Unremarkable imaged chest.
[2025-08-06] MEDS: ketorolac trometh 15mg/ml vial 15 MG/ML ML IV ONE (23:17)
[2025-08-06] MEDS: ondansetron/PF 4mg/2ml inj IV ONE (23:18)
[2025-08-06 23:24] LABS: CREATININE 0.85 MG/DL (0.60-1.10); TOTAL CARBON DIOXIDE 27.8 MMOL/L (24-32); eCRCL 112 ML/MIN; eGFR > 90 ML/MIN
[2025-08-06] MEDS: ibuprofen tablet 400 MG TABLET PO ONE (23:25)
[2025-08-06] MEDS: ondansetron 4mg rapidly disintigrating tab PO ONE (23:25)
[2025-08-06 23:54] VITALS: BP 116/89; PULSE 98; RESP 14; TEMP 98.3; O2SAT 98
== END 2025-08-06 23:55 | disposition home or self-care (01) ==
LOC: ER 22:08
DX: M25.511 Pain in right shoulder (principal); F31.9 Bipolar disorder, unspecified; Z90.49 Acquired absence of other specified parts of digestive tract; Z87.442 Personal history of urinary calculi; Z87.11 Personal history of peptic ulcer disease; Z86.14 Personal history of Methicillin resistant Staphylococcus aureus infection; Z79.899 Other long term (current) drug therapy
CPT/HCPCS: 36415; 73030; 80053; 86140; 99284